=== PATIENT | female | born 1980 | race Caucasian/White ===

== ENCOUNTER 2023-07-14 09:30 | Inpatient (IN) | payer OTHER ==
[~2023-07-14] VITALS: Ht 162.6 cm; Wt 77.6 kg
[2023-07-14] VITALS (42 sets, daily range): BP systolic 99–131; BP diastolic 71–107
[~2023-07-14 09:30] MED LIST: ALBU90OI INH; AMOX500 PO; PARO20
[2023-07-14 10:17] LABS: BASOPHILS ABSOLUTE AUTO 0.01 K/mm3 (0.00-0.23); BASOPHILS PERCENT AUTO 0 % (0-2); EOSINOPHILS PERCENT AUTO 0 % (0-6); Hematocrit 27.2 % (33.0-51.0); Hemoglobin 10.2 g/dL (11.5-16.0); IMMATURE GRAN ABSOLUTE AUTO 0.04 K/mm3 (0.00-0.10); IMMATURE GRAN PERCENT AUTO 1 % (0-1); LYMPHOCYTES ABSOLUTE AUTO 0.62 K/mm3 (0.84-5.20); LYMPHOCYTES PERCENT AUTO 8 % (21-46); MONOCYTES ABSOLUTE AUTO 0.88 K/mm3 (0.16-1.47); MONOCYTES PERCENT AUTO 11 % (4-13); Mean Corpuscular HGB 37.2 pg (26.0-34.0); Mean Corpuscular HGB Conc 37.5 g/dL (31.5-36.5); Mean Corpuscular Volume 99 fL (80-100); Mean Platelet Volume 10.2 fL (9.1-12.4); NEUTROPHILS ABSOLUTE AUTO 6.34 K/mm3 (1.96-9.15); NEUTROPHILS PERCENT AUTO 80 % (41-73); NRBC ABSOLUTE 0.02 K/mm3 (0.00-0.02); NRBC Auto 0.3 /100 WBC (0.0-0.2); Platelet Count 172 K/mm3 (150-400); RDW Standard Deviation 43.1 fL (35.1-46.3); Red Blood Cell Count 2.74 M/mm3 (3.80-5.20); White Blood Cell Count 7.89 K/mm3 (4.00-11.30)
[2023-07-14 10:47] LABS: Magnesium, Blood 1.2 mg/dL (1.6-2.4)
[2023-07-14 10:51] LABS: Influenza A, PCR NEGATIVE (NEGATIVE); Influenza B, PCR NEGATIVE (NEGATIVE); Resp Syncytial Virus, PCR NEGATIVE (NEGATIVE); SARS-Cov-2 (COVID-19) PCR, MMC NEGATIVE (NEGATIVE)
[2023-07-14 10:55] LABS: Albumin, Blood 3.6 g/dL (3.4-5.0); Albumin/Globulin Ratio 1.2 (0.8-1.8); Bilirubin, Total 2.7 mg/dL (0.1-1.0); Bun/Creatinine Ratio 29.7 (12.0-20.0); Calcium, Blood 8.6 mg/dL (8.5-10.1); Creatinine, Blood 0.34 mg/dL (0.40-1.00); Globulin, Blood 3.1 g/dL (2.2-4.0); Potassium, Blood 2.1 mmol/L (3.5-5.5); Total Protein, Blood 6.7 g/dL (6.4-8.2)
[2023-07-14 11:57] LABS: Percent Saturation 92.8 % (15.0-50.0)
--- NOTE | 2023-07-14 12:50 | NUR ---
PT ADMIT.... PT ARRIVED TO THE UNIT AND WAS ABLE TO SELF TRANSFER FROM THE ER RNEY TO THE BED, SHE WAS WEAK AND "A LITTLE DIZZY" BUT TOLERATED THE TRANSFER WELL. SHE WAS IN SINUS TACH IN THE 120'S BP IS STABLE WITH MAPS>65. L/S CLEAR T/O ON RA WITH O2 SATS>95%. TEMP 98.8. PT DENEIS ANY N/V OR ABD PAIN. SHE IS DROWSY AND FALLS ASLEEP QUICKLY BUT WAKES EASILY. WILL CONTINUE TO MONITOR.
--- NOTE | 2023-07-14 17:16 | NUR ---
SHIFT SUMMARY.... NO ACUTE NEGATIVE CHANGES NOTED THIS SHIFT. THE PT IS ABLE TO TRANSFER FROM THE BED TO THE BSC, SHE IS WEAK BUT TOLERATES THE TRANSFER WELL. SHE IS IN SINUS TACH IN THE LOW 100'S BP IS STABLE AT 122/94. 3% NS RUNNING PER ORDERS. A PICC LINE WAS PLACED PER ORDERS. THE PT DENIES ANY N/V/D BUT DOES C/O OF SOME HEART BURN. CALL LIGHT IN REACH WILL CONTINUE TO MONITOR UNTIL REPORT IS GIVEN TO ONCOMING RN.
--- NOTE | 2023-07-14 20:47 | NUR ---
ASSUMPTION OF CARE: RECEIVED REPORT FROM MARINO CAMP. PT ALERT AND ORIENTED TO TIME, PERSON, PLACE AND SITUATION. PLEASANT AND COOPERATIVE WITH CARE. ABLE TO ANSWER QUESTIONS AND MAKE NEEDS KNOWN. PT DENIES ANY PAIN, DIZZINESS OR N/V. PT STATES SHE FEELS WEAK ALL OVER. ABLE TO STAND AND WALK TO THE COMMODE WITH MINIMAL ASSISTANCE. PT ON RA WITH SPO2 >95%. DENIES SOB. INVENTORY ASSOCIATE IN PLACE, SIT WITH PVC'S. HR 100'S. SBP 110'S. DENIES CHEST PAIN OR PRESSURE. PICC LINE TO ARMANI, SALINE LOCKED. PIV'S INTACT, SALINE LOCKED. TOLERATING PO INTAKE WELL. MEDIUM LOOSE BM THIS SHIFT, VOIDING YELLOW URINE. CALL LIGHT IN REACH. BED LOW AND LOCKED.
[2023-07-14 21:00] LABS: Magnesium, Blood 2.3 mg/dL (1.6-2.4); Potassium, Blood 2.7 mmol/L (3.5-5.5)
[2023-07-15] VITALS (32 sets, daily range): BP systolic 98–123; BP diastolic 67–98
[2023-07-15 04:43] LABS: BASOPHILS ABSOLUTE AUTO 0.02 K/mm3 (0.00-0.23); BASOPHILS PERCENT AUTO 0 % (0-2); EOSINOPHILS ABSOLUTE AUTO 0.01 K/mm3 (0.00-0.68); EOSINOPHILS PERCENT AUTO 0 % (0-6); Hematocrit 24.5 % (33.0-51.0); Hemoglobin 8.7 g/dL (11.5-16.0); IMMATURE GRAN ABSOLUTE AUTO 0.02 K/mm3 (0.00-0.10); IMMATURE GRAN PERCENT AUTO 0 % (0-1); LYMPHOCYTES ABSOLUTE AUTO 0.67 K/mm3 (0.84-5.20); LYMPHOCYTES PERCENT AUTO 14 % (21-46); MONOCYTES ABSOLUTE AUTO 0.58 K/mm3 (0.16-1.47); MONOCYTES PERCENT AUTO 12 % (4-13); Mean Corpuscular HGB 36.6 pg (26.0-34.0); Mean Corpuscular HGB Conc 35.5 g/dL (31.5-36.5); Mean Corpuscular Volume 103 fL (80-100); Mean Platelet Volume 11.1 fL (9.1-12.4); NEUTROPHILS ABSOLUTE AUTO 3.49 K/mm3 (1.96-9.15); NEUTROPHILS PERCENT AUTO 73 % (41-73); Platelet Count 136 K/mm3 (150-400); RDW Coefficient Variation 12.1 % (11.7-14.2); RDW Standard Deviation 45.4 fL (35.1-46.3); Red Blood Cell Count 2.38 M/mm3 (3.80-5.20); White Blood Cell Count 4.79 K/mm3 (4.00-11.30)
[2023-07-15 04:59] LABS: Magnesium, Blood 2.1 mg/dL (1.6-2.4)
[2023-07-15 05:30] LABS: Anion Gap 5 mmol/L (6-16); Blood Urea Nitrogen 6 mg/dL (8-24); Bun/Creatinine Ratio 17.2 (12.0-20.0); CO2, Blood 37 mmol/L (21-32); Calcium, Blood 8.6 mg/dL (8.5-10.1); Chloride, Blood 93 mmol/L (98-108); Creatinine, Blood 0.35 mg/dL (0.40-1.00); Glomerular Filtration Rate 128 (60-); Glucose, Blood 123 mg/dL (70-99); Phosphorus, Blood 0.5 mg/dL (2.5-4.9); Potassium, Blood 2.7 mmol/L (3.5-5.5); Sodium, Blood 135 mmol/L (136-145)
--- NOTE | 2023-07-15 06:13 | NUR ---
SHIFT SUMMARY: NO ACUTE EVENTS T/O THE SHIFT. PT REMAINS ALERT AND ORIENTED TO TIME, PERSON, PLACE AND SITUATION. ABLE TO ANSWER QUESTIONS APPROPRIATELY AND MAKE NEEDS KNOWN. PT ON RA, SPO2 >95%. DENIES SOB. CARDIAC MONITORING IN PLACE, SINUS TACH WITH HR 100'S. SBP 120'S. DENIES CHEST PAIN OR PRESSURE. DENIES PAIN. PT ABLE TO TOLERATE PO INTAKE WELL WITH NO C/O N/V. PT DENIES ANY HEADACHE, NO TREMORS OR HALLUCINATIONS T/O THE SHIFT. PT ABLE TO STAND AND AMBULATE TO THE COMMODE WITH MINIMAL ASSIST. VOIDING YELLOW/BEBO URINE. NO BM SINCE START OF SHIFT. PICC TO ARMANI, INFUSING. PIV'S INTACT AND SALINE LOCKED. D5W INFUSING AT 125 ML/HR. PT STATES SHE NO LONGER HAS WEAKNESS IN LOWER EXTREMETIES. CALL LIGHT IN REACH, BED LOW AND LOCKED.
--- NOTE | 2023-07-15 07:46 | NUR ---
Assumed care of pt at 0700. Bedside shift report received from Alessandra CAMP and Marti RN. Pt A&O x 4. Answers questions, follows directions, pleasant and cooperative with care. Spo2 90% or greater RA. ST per monitor.
[2023-07-15 11:26] LABS: Stool Occult Blood Guaiac 1 Neg (Neg)
--- NOTE | 2023-07-15 16:00 | NUR ---
Transferred to room 212 via wheel chair by this RN. Chart, medications, and belongings transferred with patient. Assessment at time of transfer is as follows: Neuro/Musc/ADLS: A&O x 4. Answers questions, follows commands, verbalizes needs. Pleasant and cooperative with care. Mobilizes independently in room and performs ADLs independently. Resp: Lungs clear, dim in bases. Cardiac: SR at rest and ST with activity. BP stable. No edema. GI: Tolerating PO intake well. Eating about 50% of meals. Fluid restriction stopped. : Good urine output. Skin: Bottoms of feet discolored and scaly. When asked if pt walks barefoot often, she says "yes. I know I need to file my feet again". Skin otherwise C/D/I
--- NOTE | 2023-07-15 16:49 | NUR ---
TRANSFER: REPORT RECEIVED FROM [employer]PATCHER MICK. PT TO UNIT AT ABOUT 1600. A/O, AMBULATED INDEPENDENTLY TO BED. VSS. TELE BOX VERIFIED WITH FRANK FRIEDMAN. PT IS [address], NO CP. ORDERED FLUIDS INFUSING AT 125ML/HR. PT ORIENTED TO ROOM AND CALL LIGHT IN REACH.
[2023-07-15 17:58] LABS: Magnesium, Blood 1.7 mg/dL (1.6-2.4); Phosphorus, Blood 1.1 mg/dL (2.5-4.9); Potassium, Blood 2.8 mmol/L (3.5-5.5)
--- NOTE | 2023-07-15 18:22 | NUR ---
DR BLAKE CALLED WITH LAB RESULTS AT 1800, SEE NEW ORDERS. REPORT PASSED TO CONRADO GILLIS
[2023-07-16 03:43] VITALS: BP 118/92
[2023-07-16 04:55] LABS: BASOPHILS ABSOLUTE AUTO 0.02 K/mm3 (0.00-0.23); BASOPHILS PERCENT AUTO 0 % (0-2); EOSINOPHILS ABSOLUTE AUTO 0.05 K/mm3 (0.00-0.68); EOSINOPHILS PERCENT AUTO 1 % (0-6); Hematocrit 24.8 % (33.0-51.0); Hemoglobin 8.6 g/dL (11.5-16.0); IMMATURE GRAN ABSOLUTE AUTO 0.02 K/mm3 (0.00-0.10); IMMATURE GRAN PERCENT AUTO 0 % (0-1); LYMPHOCYTES PERCENT AUTO 22 % (21-46); MONOCYTES ABSOLUTE AUTO 0.51 K/mm3 (0.16-1.47); MONOCYTES PERCENT AUTO 11 % (4-13); Mean Corpuscular HGB 36.8 pg (26.0-34.0); Mean Corpuscular HGB Conc 34.7 g/dL (31.5-36.5); Mean Corpuscular Volume 106 fL (80-100); Mean Platelet Volume 10.5 fL (9.1-12.4); NEUTROPHILS ABSOLUTE AUTO 2.95 K/mm3 (1.96-9.15); NEUTROPHILS PERCENT AUTO 65 % (41-73); Platelet Count 141 K/mm3 (150-400); RDW Coefficient Variation 12.4 % (11.7-14.2); RDW Standard Deviation 47.7 fL (35.1-46.3); Red Blood Cell Count 2.34 M/mm3 (3.80-5.20); White Blood Cell Count 4.55 K/mm3 (4.00-11.30)
[2023-07-16 05:24] LABS: Albumin, Blood 2.9 g/dL (3.4-5.0); Anion Gap 7 mmol/L (6-16); Blood Urea Nitrogen 6 mg/dL (8-24); Bun/Creatinine Ratio 15.9 (12.0-20.0); CO2, Blood 32 mmol/L (21-32); Chloride, Blood 99 mmol/L (98-108); Creatinine, Blood 0.38 mg/dL (0.40-1.00); Glomerular Filtration Rate 126 (60-); Glucose, Blood 113 mg/dL (70-99); Magnesium, Blood 1.6 mg/dL (1.6-2.4); Phosphorus, Blood 2.3 mg/dL (2.5-4.9); Potassium, Blood 3.3 mmol/L (3.5-5.5); Sodium, Blood 138 mmol/L (136-145)
[2023-07-16 07:25] VITALS: BP 109/86
--- NOTE | 2023-07-16 08:11 | NUR ---
A&OX4, DENIES ANY DISCOMFORT, ANXIOUS TO GO HOME TODAY, DR. BLAKE HERE TO SEE PT, POSSIBLE DC HOME TODAY PENDING LAB RESULTS.
--- NOTE | 2023-07-16 08:50 | NUR ---
SUMMARY DR BLAKE HERE THIS AM TO SEE PT.DR BLAKE AWARE AIC RESULT NOT AVAILABLE YET-WAS SEND OUT. HE STATED HE WILL FOLLOW UP IN FUTURE.
[2023-07-16 10:02] LABS: Potassium, Blood 3.3 mmol/L (3.5-5.5)
[2023-07-16] MEDS ORDERED: Nicoderm Cq1 EACH TOP (10:50)
[2023-07-16] MEDS ORDERED: FOLI1 PO (10:51)
[2023-07-16] MEDS ORDERED: Hair, Skin & N1 EACH PO (10:51)
--- NOTE | 2023-07-16 11:35 | NUR ---
LAB RESULT REPORTED TO DR. BLAKE, OK'D TO DC HOME, DC INSTRUCTIONS GIVEN, VERBALIZED UNDERSTANDING.
[2023-07-17 06:07] LABS: HEMOGLOBIN A1C 4.8 % (4.8-5.6)
[2023-07-17 06:55] LABS: ALDOSTERONE 4.2 ng/dL; ALDOSTERONE/RENINACTIVITY CALC 0.8 ratio (<=25.0)
== END 2023-07-16 11:56 | disposition home or self-care (01) | DRG 641 ==
LOC: ER 09:30 → ICUE 11:32 → SURS 07-15 16:14
PROVIDERS: Internal Medicine; Internal Medicine Nephrology; Physician Assistant; ADMIT Family Medicine
PROC: 05HY33Z Insertion of Infusion Device into Upper Vein, Percutaneous Approach (ICD-10-PCS; principal; 2023-07-14)
DX: E87.1 Hypo-osmolality and hyponatremia (principal); R56.9 Unspecified convulsions; E87.6 Hypokalemia; E83.42 Hypomagnesemia; E83.30 Disorder of phosphorus metabolism, unspecified; F10.10 Alcohol abuse, uncomplicated; D52.9 Folate deficiency anemia, unspecified; D69.6 Thrombocytopenia, unspecified; E88.09 Other disorders of plasma-protein metabolism, not elsewhere classified; R74.01 Elevation of levels of liver transaminase levels; Z71.41 Alcohol abuse counseling and surveillance of alcoholic; R94.7 Abnormal results of other endocrine function studies
CPT/HCPCS: 0241U; 36415; 36569; 70450; 80053; 80069; 82088; 82272; 82533; 82607; 82728; 82746; 82947; 83036; 83540; 83550; 83690; 83735; 83930; 84100; 84132; 84244; 84295; 84443; 84550; 84703; 85025; 96361; 96365; 96366; 96368; 96375; 99285-25; A9270; C1751; C9113; J1815; J2405; J3411; J3475; J3480; J7030; J7050; J7060; J7070